=== PATIENT | male | born 1955 | race Caucasian/White ===

== ENCOUNTER 2019-05-15 05:47 | Day surgery (SDC) | payer OTHER ==
[~2019-05-15] VITALS: Ht 180.3 cm; Wt 81.3 kg
[~2019-05-15 05:47] MED LIST: ATEN50 PO; CEPH500 PO; CHLO25B PO; CYCL10 PO; HYDACE5325 PO; IBUP800 PO; OXYACE5T PO; SULTRIDS PO; THERA1 EACH PO; [UNRECOGNIZED DRUG - OTHER] TOP
--- NOTE | 2019-05-15 07:44 | NUR ---
LATE ENTRY 0627 Ambulatory in Day Surgery. Surgical site prepped with 2% Chlorhexidine cloth wipe. History, Chart, Medications and Allergies reviewed before start of procedure.Lungs clear T/O to Auscultation. Patient States Post-Procedure ride home has been arranged. Patient confirms NPO status and agrees with scheduled surgery.GLASSES TO PACU, DENTURES TO PACU, NO HEARING DEVICES.
--- NOTE | 2019-05-15 11:21 | NUR ---
Patient up to Ambulate independently. Gait steady. Dressing to procedure site clean, dry, intact with no visible drainage, swelling, erythema or bruising noted. Discharge instructions reviewed with patient. Patient verbalizes understanding. Copy given to patient to take home. Patient States Post-Procedure ride home has been arranged. Discharged via wheelchair to private car for ride home.
--- NOTE | 2019-05-16 07:52 | NUR ---
05/16/19 0752 Carla Salinas VERIFICATIONS: EDIT CHART.
== END 2019-05-15 11:23 | disposition home or self-care (01) ==
LOC: ORSCMMR 05:47 → ORD 07:30 → ORSCMMR 11:23
PROVIDERS: Surgery
PROC: 8E0W4CZ Robotic Assisted Procedure of Trunk Region, Percutaneous Endoscopic Approach (ICD-10-PCS; principal; 2019-05-15 07:30)
PROC: 0YU64JZ Supplement Left Inguinal Region with Synthetic Substitute, Percutaneous Endoscopic Approach (ICD-10-PCS; principal; 2019-05-15 07:30)
DX: K40.90 Unilateral inguinal hernia, without obstruction or gangrene, not specified as recurrent (principal); I10 Essential (primary) hypertension; E11.9 Type 2 diabetes mellitus without complications; Z79.899 Other long term (current) drug therapy; F17.210 Nicotine dependence, cigarettes, uncomplicated
CPT/HCPCS: 49650; S2900; 82947; A9270-GY; C1781; J0330; J0690; J2250; J2405; J2704; J3010; J7120

== ENCOUNTER 2019-07-16 19:23 | Emergency (ER) | payer OTHER ==
[~2019-07-16] VITALS: Ht 180.3 cm; Wt 83.9 kg
== END 2019-07-16 20:37 | disposition home or self-care (01) ==
LOC: ER 19:23
DX: S61.012A Laceration without foreign body of left thumb without damage to nail, initial encounter (principal); W31.2XXA Contact with powered woodworking and forming machines, initial encounter
CPT/HCPCS: 73140; 99283-25

== ENCOUNTER 2021-01-08 14:38 | Emergency (ER) | payer OTHER ==
[~2021-01-08] VITALS: Ht 177.8 cm; Wt 86.2 kg
[2021-01-08] MEDS ORDERED: CEPH500 PO ×2 (15:09→15:29)
== END 2021-01-08 15:30 | disposition home or self-care (01) ==
LOC: ER 14:38
DX: L73.9 Follicular disorder, unspecified (principal); I10 Essential (primary) hypertension; Z79.899 Other long term (current) drug therapy; Z91.018 Allergy to other foods
CPT/HCPCS: 99282

== ENCOUNTER 2021-08-05 15:36 | Emergency (ER) | payer OTHER ==
[~2021-08-05] VITALS: Ht 180.3 cm; Wt 85.3 kg
[2021-08-05 16:08] LABS: BASOPHILS ABSOLUTE AUTO 0.04 K/mm3 (0.00-0.23); BASOPHILS PERCENT AUTO 0 % (0-2); EOSINOPHILS ABSOLUTE AUTO 0.07 K/mm3 (0.00-0.68); EOSINOPHILS PERCENT AUTO 1 % (0-6); Hematocrit 43.5 % (37.0-53.0); Hemoglobin 15.5 g/dL (13.5-17.5); IMMATURE GRAN ABSOLUTE AUTO 0.03 K/mm3 (0.00-0.10); IMMATURE GRAN PERCENT AUTO 0 % (0-1); LYMPHOCYTES ABSOLUTE AUTO 2.59 K/mm3 (0.84-5.20); LYMPHOCYTES PERCENT AUTO 26 % (21-46); MONOCYTES ABSOLUTE AUTO 0.51 K/mm3 (0.16-1.47); MONOCYTES PERCENT AUTO 5 % (4-13); Mean Corpuscular HGB 30.9 pg (26.0-34.0); Mean Corpuscular HGB Conc 35.6 g/dL (31.5-36.5); Mean Corpuscular Volume 87 fL (80-100); Mean Platelet Volume 10.4 fL (9.1-12.4); NEUTROPHILS PERCENT AUTO 67 % (41-73); Platelet Count 337 K/mm3 (150-400); RDW Coefficient Variation 11.4 % (11.7-14.2); Red Blood Cell Count 5.02 M/mm3 (4.30-5.90); White Blood Cell Count 9.84 K/mm3 (4.00-11.30)
[2021-08-05 16:27] LABS: Alanine Aminotransfer (ALT/SGP 35 U/L (12-78); Albumin, Blood 4.2 g/dL (3.4-5.0); Albumin/Globulin Ratio 1.2 (0.8-1.8); Alk Phos 45 U/L (50-136); Anion Gap 5 mmol/L (6-16); Aspartate Aminotrans (AST/SGOT 16 U/L (12-37); Bilirubin, Total 0.6 mg/dL (0.1-1.0); Blood Urea Nitrogen 19 mg/dL (8-24); Bun/Creatinine Ratio 25.3 (12.0-20.0); CO2, Blood 31 mmol/L (21-32); Calcium, Blood 9.6 mg/dL (8.5-10.1); Chloride, Blood 98 mmol/L (98-108); Creatinine, Blood 0.75 mg/dL (0.60-1.20); Globulin, Blood 3.6 g/dL (2.2-4.0); Glomerular Filtration Rate >60 (60-); Glucose, Blood 143 mg/dL (70-99); Magnesium, Blood 2.6 mg/dL (1.6-2.4); Potassium, Blood 3.1 mmol/L (3.5-5.5); Sodium, Blood 134 mmol/L (136-145); Total Protein, Blood 7.8 g/dL (6.4-8.2)
[2021-08-05] MEDS ORDERED: ONDA4ODT MM (18:02)
[2021-08-05] MEDS ORDERED: AMLO5 PO (18:02)
== END 2021-08-05 18:16 | disposition home or self-care (01) ==
LOC: ER 15:36
PROVIDERS: Physician Assistant
DX: R42 Dizziness and giddiness (principal); R11.2 Nausea with vomiting, unspecified; I10 Essential (primary) hypertension; Z91.018 Allergy to other foods; Z79.899 Other long term (current) drug therapy
CPT/HCPCS: 36415; 70450; 80053; 83690; 83735; 84484; 85025; 93005; 93010; 96374; 99284-25; A9270; J2405